=== PATIENT | female | born 1945 | race Two or more races ===

== ENCOUNTER 2020-08-15 21:00 | Inpatient (IN) | payer OTHER ==
[~2020-08-15] VITALS: Ht 157.5 cm; Wt 87.5 kg
[2020-08-15] MEDS ORDERED: HORIZANT300 MG PO (21:17)
[2020-08-15] MEDS ORDERED: METFORMIN HCL500 M3 PO (21:17)
[2020-08-15] MEDS ORDERED: LASIX20 MG PO (21:19)
[2020-08-15] MEDS ORDERED: CILOSTAZOL100 MG PO (21:19)
[2020-08-15] MEDS ORDERED: BENICAR20 MG PO (21:19)
[2020-08-15] MEDS ORDERED: XARELTO20 MG PO (21:19)
[2020-08-15] MEDS ORDERED: ZIAC 2.5-6.251 EACH PO (21:19)
[2020-08-15] MEDS ORDERED: PROAIR HFA8.5 GM IH (21:20)
[2020-08-15] MEDS ORDERED: IPRATROPIU0.2 MG/1 M IH (21:20)
[2020-08-15] MEDS ORDERED: SINGULAIR4 M1 PO (21:21)
[2020-08-15] MEDS ORDERED: ADVAIR 100-501 EACH IH (21:21)
== END 2020-08-23 09:46 | disposition home or self-care (01) | DRG 291 ==
LOC: ER 21:00 → MEDI 08-16 10:08 → SEC-K 08-16 10:08 → MEDJ 08-16 14:38 → SEC-K 08-16 16:12 → MEDI 08-17 13:03
PROVIDERS: ADMIT Internal Medicine; ATTEND Internal Medicine
PROC: B24BYZZ Ultrasonography of Heart with Aorta using Other Contrast (ICD-10-PCS; 2020-08-16)
PROC: 4A12X4Z Monitoring of Cardiac Electrical Activity, External Approach (ICD-10-PCS; principal; 2020-08-18)
DX: I11.0 Hypertensive heart disease with heart failure (principal); I26.99 Other pulmonary embolism without acute cor pulmonale; N17.9 Acute kidney failure, unspecified; I50.9 Heart failure, unspecified; I48.91 Unspecified atrial fibrillation; I73.9 Peripheral vascular disease, unspecified; I07.1 Rheumatic tricuspid insufficiency; I34.0 Nonrheumatic mitral (valve) insufficiency; E11.9 Type 2 diabetes mellitus without complications; Z86.718 Personal history of other venous thrombosis and embolism; Z95.1 Presence of aortocoronary bypass graft; I25.10 Atherosclerotic heart disease of native coronary artery without angina pectoris; Z20.822 Contact with and (suspected) exposure to COVID-19